=== PATIENT | female | born 1990 | race African-American/Black ===

== ENCOUNTER 2021-06-03 10:28 | Emergency (ER) | payer OTHER ==
[~2021-06-03] VITALS: Ht 154.9 cm; Wt 78.2 kg
--- NOTE | 2021-06-03 11:01 | EKG ---
[address] [address] Test Date: 2021-06-03 Test Time: 10:54:05 Pat Name: STAR ERAZO Department: Room: Gender: F A And P Mechanic: ANNABELLE : 1990 Requested By: VIRGINIA MORTON Order Number: [id number] Reading MD: Measurements Intervals Surrency Rate: 77 P: 0 IL: 164 QRS: 43 QRSD: 76 T: 9 QT: 374 QTc: 425 Interpretive Statements SINUS RHYTHM R-S TRANSITION ZONE IN V LEADS DISPLACED TO THE LEFT OTHERWISE NORMAL ECG RI6.02 No previous ECG available for comparison
[2021-06-03 11:26] LABS: BASO % 0 % (0-3); EOS # 0.1 x10^3/uL (0.0-0.7); EOS % 2 % (0-3); HEMATOCRIT 40.4 % (36.0-47.0); HEMOGLOBIN 13.5 g/dL (12.0-15.5); LYMPH % 21 % (24-48); MEAN CORPUSCULAR HEMOGLOBIN 30 pg (25-35); MEAN CORPUSCULAR HGB CONC 34 g/dL (31-37); MEAN CORPUSCULAR VOLUME 89 fL (79-100); MONO # 0.8 x10^3/uL (0.0-1.1); MONO % 8 % (0-9); NEUT # 6.5 x10^3uL (1.8-7.7); NEUT % 69 % (31-73); PLATELET COUNT 318 x10^3/uL (140-400); RED BLOOD COUNT 4.55 x10^6/uL (3.50-5.40); RED CELL DISTRIBUTION WIDTH 13.8 % (11.5-14.5); WHITE BLOOD COUNT 9.5 x10^3/uL (4.0-11.0)
--- NOTE | 2021-06-03 11:32 | PHYS DOC ---
Past History Past Surgical History: No Surgical History (VIRGINIA MORTON APRN) Adult General Chief Complaint Chief Complaint: DIZZY/LIGHT HEADED HPI HPI Patient is a 30-year-old female presents emergency department with chief complaint I want to get checked out for diabetes. Patient reports a family history of diabetes stating her grandmother, brother, and mother have diabetes h owever she does not know what type. Patient reports she has been experiencing passing out spells if she does not eat constantly for the past 13 years, reports she has been worked up several times but was told nothing is wrong with her. Patient reports a passing out spell this morning while laying down in bed stating that she passed out for 10 minutes, recalls the event clearly, states that the room blacks out during this time period. Patient denies a seizure history, denies loss of bowel or bladder, denies biting her tongue. Patient denies headaches or head pain. Denies recent fever or chills, denies chest palpitations, chest pain, chest congestion or nasal congestion. Patient denies urinary tract infection type signs or symptoms, denies STI concerns, denies vaginal discharge or rashes of her vagina. Patient reports her last menstrual cycle 3 weeks ago with normal duration and flow. States she takes a albuterol inhaler for asthma as needed. Denies allergies to medications. Reports a past surgical history of heart murmur repair when she was a baby. Patient states she does not have a primary care physician as she recently moved here from [facility]. Patient denies any other physical complaints or physical concerns. (VIRGINIA MORTON APRN) Review of Systems Review of Systems 14 body systems of review of systems have been reviewed. See HPI for pertinent positives and negative responses, otherwise all other systems are negative, nonpertinent or noncontributory. Constitutional: Negative except as outlined in HPI above. Skin: Negative except as outlined in HPI above. Eyes: Negative except as outlined in HPI above. HENT: Negative except as outlined in HPI above. Respiratory: Negative except as outlined in HPI above. Cardiovascular: Negative except as outlined in HPI above. GI: Negative except as outlined in HPI above. : Negative except as outlined in HPI above. Musculoskeletal: Negative except as outlined in HPI above. Integument: Negative except as outlined in HPI above. Neurologic: Negative except as outlined in HPI above. Endocrine: Negative except as outlined in HPI above. Lymphatic: Negative except as outlined in HPI above. Psychiatric: Negative except as outlined in HPI above. (VIRGINIA MORTON APRN) Physical Exam Physical Exam Constitutional: Well developed, well nourished, no acute distress, non-toxic appearance.[] In no apparent distress. HENT: Normocephalic, atraumatic. Eyes: Conjunctiva normal, no discharge. Neck: Normal range of motion, no stridor. Cardiovascular: No cyanosis appreciated, distal cap refill less than 2 seconds. Lungs & Thorax: Patient is in no respiratory distress, no audible adventitious lung sounds appreciated. Abdomen: Nontender, no abnormalities noted. Skin: Warm, dry, no erythema, no rash. [] Back: No tenderness, no deformities. Extremities: No tenderness, no cyanosis, no clubbing, ROM intact, no edema. [] Neurologic: Alert and oriented X 3, normal motor function, normal sensory function, no focal deficits noted. Psychologic: Affect normal, judgement normal, mood normal. (VIRGINIA MORTON APRN) Current Patient Data Vital Signs Vital Signs Date Time Temp Pulse Resp B/P (MAP) Pulse Ox O2 Delivery O2 Flow Rate FiO2 06/03/21 10:38 97.7 84 18 128/95 97 Room Air Lab Results Laboratory Tests Test 06/03/21 10:55 Glucose (Fingerstick) 105 mg/dL (70-99) H (VIRGINIA MORTON APRN) EKG EKG EKG performed at 1054 by ED nursing staff shows a normal sinus rhythm without ectopy, heart rate 77 bpm, no acute STEMI, no ACS, no acute ischemia appreciated, EKG interpreted by ED attending physician Dr. Elliott. (VIRGINIA MORTON APRN) Radiology/Procedures Radiology/Procedures PATIENT: STAR ERAZO MACCOUNT: [id number] : 1990 LOCATION: ER AGE: 30 SEX: F EXAM STATUS: REG ER ORD. PHYSICIAN: VIRGINIA MORTON APRN REASON: Syncopal episode PROCEDURE: CT HEAD WO CONTRAST INDICATION: Reason: Syncopal episode / Spl. Instructions: / History: COMPARISON: None. TECHNIQUE: Axial CT images obtained through the head without intravenous contrast. One or more of the following individualized dose reduction techniques were utilized for this examination: 1. Automated exposure control; 2. Adjustment of the mA and/or kV according to patient size; 3. Use of iterative reconstruction technique. FINDINGS: No intracranial hemorrhage. No significant midline shift. Ventricles and sulci are unremarkable. No acute osseous abnormality. IMPRESSION: * No acute intracranial hemorrhage. PROCEDURE: CHEST AP ONLY INDICATION: Reason: syncopal episode / Spl. Instructions: / History: COMPARISON: None. FINDINGS: Single view of chest obtained. Hypoexpanded examination of the lungs. Cardiac silhouette near upper limits of normal in size but likely exaggerated by portable technique. Mild haziness at bilateral lungs most prominent at the left greater than right lung base IMPRESSION: * Hypoexpanded exam with mild haziness at the bilateral lungs most prominent at the left greater than right lung base. * Could be from hypoventilatory changes but mild edema or interstitial infiltrate could also have this appearance. Electronically signed by: Cody Hoffman MD (06/03/2021 11:37 AM) [id number] (VIRGINIA MORTON APRN) Heart Score C/O Chest Pain: No Risk Factors: Risk Factors: DM, Current or recent (<one month) smoker, HTN, HLP, family history of CAD, obesity. Risk Scores: Risk Factors: DM, Current or recent (<one month) smoker, HTN, HLP, family history of CAD, obesity. (VIRGINIA MORTON APRN) Course & Med Decision Making Course & Med Decision Making Pertinent Labs and Imaging studies reviewed. (See chart for details) 30-year-old female, vital signs reviewed, presents to the emergency department concerning wanting to get checked for diabetes. Patient reports she has had passing out spells for the past 13 years and has reported several emergency room visits stating she is told nothing is wrong with her. Patient does report a syncopal episode this morning in which she remembers the event and lasting approximately 10 minutes while she was lying down the bed. Patient's physical e xamination was unremarkable however related to patient's explanation of events will order CT head, lab work to rule out infectious process, CBC or CMP abnormalities, urinalysis assay. Patient is ED work-up unremarkable, the patient is not in diabetic ketoacidosis, her urine was not infected, CBC and CMP within normal limits. Discussed with patient ED findings, strict follow-up with primary care, diagnosis passing out spells, there may be an underlying cardiac or neurological component to her symptoms. Differential diagnosis, seizures, seizure like activity, pseudoseizures, cardiac electrical conduction pathway abnormalities. Discussed with patient length follow-up with primary care to consider ongoing evaluation with possible follow-up with neurology or cardiology. Patient gave verbal understanding of this. Discussed with the patient all findings and diagnostic testing as well as the need to follow-up with their primary care provider for further evaluation and treatment or return to the ED if any new or worsening symptoms. Strict return precautions were also discussed at length, the patient voiced understanding and agreement with the discharge planning. The patient was nontoxic in appearance, in no apparent distress, and hemodynamically stable at the time of disposition. (VIRGINIA MORTON APRN) Dragon Disclaimer Dragon Disclaimer This electronic medical record was generated, in whole or in part, using a voice recognition dictation system. (VIRGINIA MORTON APRN) Attending Co-Sign The patient was seen and interviewed as well as examined at the bedside. The chart was reviewed. The case was discussed. Agree with the plan of care. (HAKEEM ELLIOTT DO) Departure Departure: Impression: Primary Impression: Syncopal episodes Disposition: 01 HOME / SELF CARE / HOMELESS Condition: GOOD Referrals: [facility] (PCP) Patient Instructions: Syncope Additional Instructions: You were seen in the emergency department today for passing out spells at home. You had indicated this problem has been going on for about 13 years. A full cardiorespiratory and neurological work-up was performed today in the emergency department. The CT scan of your head did not show any concerning findings, your lab work did not show any concerning findings and was reassuring that you are not having a heart attack or pneumonia, there were no signs of diabetes or blood sugar problems however the emergency department is not a place where you can be diagnosed with diabetes as this requires specific lab tests that can be done in a physician's office. As we discussed, your chest x-ray did show some haziness however there were no supporting signs of congestive heart failure, pneumonia, or other infectious process. As we discussed at length, please follow-up with a primary care provider for ongoing evaluation and investigation of your passing out spells. You may consider using the [facility] located at [address] [place] [address] [place] [address] telephone number [phone], or any primary care provider of your choice. Thank you for visiting our Emergency Department. It was a pleasure taking care of you today in the emergency department and we appreciate you trusting us with your care. If any additional problems come up don't hesitate to return to visit us. Please follow up with your primary care provider so they can plan additional care if needed and know about the problem that you had. If symptoms worsen come back to the Emergency Department. Any concerning symptoms that start such as chest pain, shortness of air, weakness or numbness on one side of the body, running high fevers or any other concerning symptoms return to the ER. EMERGENCY DEPARTMENT GENERAL DISCHARGE INSTRUCTIONS Thank you for coming to [facility] (ED) today and trusting us with you care. We trust that you had a positivie experience in our Emergency Department. If you wish to speak to the department management, you may call the director at [phone]. YOUR FOLLOW UP INSTRUCTIONS ARE FOLLOWS: 1. Do you have a private Doctor? If you do not have a private doctor, please ask for a resource list of physicians or clinics that may be able to assist you with follow up care. 2. The Emergency Physician has interpreted your x-rays. The X-Ray specialist will also review them. If there is a change in the findings, you will be notified in 48 hours when at all possible. 3. A lab test or culture has been done, your results will be reviewed and you will be notified if you need a change in treatment. ADDITIONAL INSTRUCTIONS AND INFORMATION: 1. Your care today has been supervised by a physician who is specially trained in emergency care. Many problems require more than one evaluation for a complete diagnosis and treatment. We recommend that you schedule your follow up appointment as recommended to ensure complete treatment of you illness or injury. If you are unable to obtain follow up care and continue to have a problem, or if your condition worsens, we recommend that you return to the ED. 2. We are not able to safely determine your condition over the phone nor are we able to give sound medical advice over the phone. For these safety reasons, if you call for medical advice we will ask you to come to the ED for further evaluation. 3. If you have any questions regarding these discharge instructions please call the ED at [phone]. SAFETY INFORMATION: In the interest of safety, wellness, and injury prevention; we encourage you to wear your sealbelt, if you smoke; quite smoking, and we encourage family to use a protective helmet for bicycling and other sporting events that present an increased risk for head injury. IF YOUR SYMPTOMS WORSEN OR NEW SYMPTOMS DEVELOP, OR YOU HAVE CONCERNS ABOUT YOUR CONDITION; OR IF YOUR CONDITION WORSENS WHILE YOU ARE WAITING FOR YOUR FOLLOW UP APPOINTMENT; EITHER CONTACT YOUR PRIMARY CARE DOCTOR, THE PHYSICIAN WHOSE NAME AND NUMBER YOU WERE GIVEN, OR RETURN TO THE ED IMMEDIATELY. Problem Qualifiers Primary Impression: Syncopal episodes Syncope type: unspecified Qualified Codes: R55 - Syncope and collapse VIRGINIA MORTON APRN Jun 03, 2021 11:32 HAKEEM ELLIOTT DO Jun 06, 2021 15:26
[2021-06-03 11:38] LABS: CALCIUM 8.3 mg/dL (8.5-10.1); CREATININE 0.6 mg/dL (0.6-1.0); GFR 140.2
[2021-06-03 11:39] LABS: BACTERIA,URINE 0 /HPF (0-FEW); BILIRUBIN,URINE NEG (NEG); CLARITY,URINE CLEAR; COLOR,URINE YELLOW; GLUCOSE,URINE NEG (NEG); NITRITE,URINE NEG (NEG); RBC,URINE RARE /HPF (0-2); SQUAMOUS EPITHELIAL CELL,UR MANY /LPF; WBC,URINE OCC /HPF (0-4)
--- NOTE | 2021-06-03 11:39 | RAD ---
INDICATION: Reason: syncopal episode / Spl. Instructions: / History: COMPARISON: None. FINDINGS: Single view of chest obtained. Hypoexpanded examination of the lungs. Cardiac silhouette near upper limits of normal in size but likely exaggerated by portable technique. Mild haziness at bilateral lungs most prominent at the left greater than right lung base IMPRESSION: * Hypoexpanded exam with mild haziness at the bilateral lungs most prominent at the left greater reyna n right lung base. * Could be from hypoventilatory changes but mild edema or interstitial infiltrate could also have th is appearance. Electronically signed by: Cody Hoffman MD (06/03/2021 11:37 AM) [id number]
[2021-06-03 11:44] LABS: ALBUMIN 3.8 g/dL (3.4-5.0); ALBUMIN/GLOBULIN RATIO 1.1 (1.0-1.7); TOTAL BILIRUBIN 0.4 mg/dL (0.2-1.0); TOTAL PROTEIN 7.4 g/dL (6.4-8.2)
--- NOTE | 2021-06-03 11:44 | RAD ---
INDICATION: Reason: Syncopal episode / Spl. Instructions: / History: COMPARISON: None. TECHNIQUE: Axial CT images obtained through the head without intravenous contrast. One or more of the following individualized dose reduction techniques were utilized for this examinat ion: 1. Automated exposure control; 2. Adjustment of the mA and/or kV according to patient size; 3 . Use of iterative reconstruction technique. FINDINGS: No intracranial hemorrhage. No significant midline shift. Ventricles and sulci are unremarkable. No acute osseous abnormality. IMPRESSION: * No acute intracranial hemorrhage. Electronically signed by: Cody Hoffman MD (06/03/2021 11:41 AM) [id number]
[2021-06-03 13:42] VITALS: BP 128/80
== END 2021-06-03 13:45 | disposition home or self-care (01) ==
LOC: ER 10:28
DX: R55 Syncope and collapse (principal)
CPT/HCPCS: 36415; 70450; 71045; 80053; 81001; 82947; 83690; 83880; 84484; 85025; 87086; 93005; 99285-25